=== PATIENT | male | born 1955 | race African-American/Black ===

== ENCOUNTER 2017-04-21 06:30 | Day surgery (SDC) | payer MEDICAID ==
[~2017-04-21 06:30] MED LIST: Lactated Ringers 1,000 ML IV SCH
[2017-04-21] MEDS ORDERED: Lactated Ringers 1,000 ML IV SCH (07:00)
[2017-04-21] MEDS ORDERED: Midazolam 1 MG/ML 2 ML SDV ONE (07:40)
[2017-04-21] MEDS ORDERED: fentaNYL 100 MCG/2 ML SDV ONE (07:40)
[2017-04-21] MEDS ORDERED: Propofol 200 MG/20 ML SDV ONE ×2 (07:40→08:14)
--- NOTE | 2017-04-21 11:03 | OR ---
DATE OF PROCEDURE: 04/21/2017 PREOPERATIVE DIAGNOSIS: Blood in stool. POSTOPERATIVE DIAGNOSES: 1. Blood in stool, etiology unknown. 2. Hemorrhoids. PROCEDURE PERFORMED: Colonoscopy to the cecum. ANESTHESIA: IV anesthesia with monitored anesthesia care. INDICATION: This 61-year-old black male is referred for a colonoscopy because of blood in his stool. He has never had a colonoscopic exam. I counseled him for the procedure including risks and alternatives, and he gave his informed consent to proceed. DESCRIPTION OF PROCEDURE: The patient was placed in the left lateral decubitus position. IV anesthesia was administered by the Anesthesia Service. Time-out was held. A rectal exam was performed, which was unremarkable. The flexible video Olympus colonoscope was introduced through his anus, up his rectum, out his colon, all the way to the cecum. There was a lot of spasm present. Once the cecum was reached, the scope was slowly withdrawn, examining the mucosa throughout. No mucosal abnormalities were noted. The scope was retroflexed in the rectum with the distal rectum showing some hemorrhoidal tissue. The scope was straightened and removed. He tolerated the procedure well. Kin Fowler MD /[id number]
== END 2017-04-21 09:30 | disposition home or self-care (01) ==
LOC: JP.SDS 06:30
PROVIDERS: ATTEND Surgery
DX: K92.1 Melena (principal); E11.9 Type 2 diabetes mellitus without complications; K64.9 Unspecified hemorrhoids; Z88.5 Allergy status to narcotic agent; Z91.011 Allergy to milk products
CPT/HCPCS: 45378; J2250; J2704; J3010; J7120